=== PATIENT | female | born 1940 | race Caucasian/White ===

== ENCOUNTER 2022-01-21 16:19 | Emergency (ER) | payer MEDICARE, OTHER, SELFPAY ==
[2022-01-21] VITALS (11 sets, daily range): BP systolic 122–217; BP diastolic 58–132; PULSE 99–127; RESP 16–32; TEMP 36.9–37.3; O2SAT 92–100; BMI 38.0
--- NOTE | 2022-01-21 16:44 | ED_ITS ---
HPI - General Adult General: Chief complaint: Nausea/Vomiting/Diarrhea Stated complaint: N,V,D Time Seen by Provider: 01/21/22 16:39 History of Present Illness: Patient is an 81-year-old female with prior history of breast cancer presenting to the emergency room from [facility] for evaluation of altered mental status and dark stool. On Wednesday, patient fell and was found on the ground. Since then, patient is becoming increasingly more confused. Over the last 2 days, care home notes the patient has been passing dark stool. Patient had more episodes of dark stool yesterday compared to today. Patient's family found patient to be more confused with dark stool decided to call EMS and patient was brought here. Patient has no history of cirrhosis, or anticoagulation use. Family denies any antiplatelet use. Onset: 3 days ago Duration:3 days Location:home Severity:moderate Review of Systems General: Reports: ROS unobtainable due to mental status Neuro: Reports: other (+increased confusion) [facility] ED PFSH: Medical History Breast cancer Fall Social History Smoking and tobacco status: never smoked Alcohol intake: never Substance/Drug Use: never Physical Exam Const: COMMON NORMALS: alert HENMT: COMMON NORMALS: atraumatic HEAD & SCALP: atraumatic MOUTH: moist mucous membranes abnormal Eye: COMMON NORMALS: EOMs intact bilaterally and conjunctivae normal CONJUNCTIVA: Yes conjunctivae normal Neck/C-Spine: COMMON NORMALS: full ROM and supple Resp: COMMON NORMALS: normal respiratory effort and clear to auscultation bilaterally AUSCULTATION: clear to auscultation bilaterally Cardio: RATE: bradycardic GI: COMMON NORMALS: Soft to palpation and non-tender PALPATION: Yes Soft to palpation OTHER: No focal TTP. NO guarding rebound, guarding, rigidity. No CVA tenderness to percussion. Neg Logan/Neg McBurney's point tenderness, no suprabupic tenderness to palpation. RECTAL: Hemoccult positive melanotic stool, L perianal fluctuance measuring 2cm Extremity: COMMON NORMALS: full ROM Neuro: SENSORIUM/ORIENTATION: Yes alert MOTOR EXAM: No Abnormal motor strength present and Other motor observations present (no focal motor deficits) OTHER: GCS 14, confused, moving all extremities, answering most questions Psych: OTHER: +unable to assess due to AMS Course Vital Signs: Vital signs: Vital Signs Temperature 98.5 F 01/21/22 20:11 Pulse Rate 99 01/21/22 21:15 Respiratory Rate 16 01/21/22 21:00 Blood Pressure 148/93 01/21/22 20:11 Pulse Oximetry 100 01/21/22 21:00 Oxygen Delivery Me thod 01/21/22 21:00 MDM - General Adult Medical Decision Making Patient is an 81-year-old female with prior history of breast cancer presenting to the emergency room from [facility] for evaluation of altered mental status and dark stool. No history of cirrhosis. Not on any anticoagulation or antiplatelets. On physical exam, patient appears to be confused. Patient had large amount of black stool in the linen. Patient initially is noted be dry and tachycardic to the 130s 140s. Blood pressure appears to be compensated. Initial WBC of 26K. Patient has a sodium 124 today. I suspect the patient has acute GI bleed. She received 2 units of uncrossed O+ blood. Patient received Protonix. No history of varices or cirrhosis. Decision was made to not give patient any octreotide. Given significant leukocytosis and altered mental status, patient received vancomycin and meropenem with IVF. CT head is negative for any acute pathology. CTA chest negative for any signs of PE. Case was discussed with Dr. Sun who agreed with the transfer to [facility] for management of acute GI bleed. Disposition: Transfer to outside hospital Lab Data : 01/21/22 18:16 01/21/22 16:29 Radiology Impressions Cervical Spine CT 01/21/22 17:07 IMPRESSION: No acute findings. Head CT 01/21/22 17:07 IMPRESSION: 1. Negative for intracranial hemorrhage or mass effect. 2. Diffuse moderate to severe ventricular dilation suggestive of chronic communicating hydrocephalus with moderate diffuse white matter disease likely reflecting chronic microvascular ischemic changes. 3. Right basal ganglia chronic lacunar infarct. Chest CTA 01/21/22 17:40 IMPRESSION: Negative CTA chest. No acute chest abnormality identified. Laboratory Results WBC 39.1 10^3/uL (4.0-10.0) H* 01/21/22 18:16 RBC 3.96 10^6/uL (4.1-5.3) L 01/21/22 18:16 Hgb 10.6 g/dL (11.5-15.3) L D 01/21/22 18:16 Hct 34.0 % (37.0-47.0) L D 01/21/22 18:16 MCV 85.9 fl (81-99) 01/21/22 18:16 MCH 26.8 pg (28.0-34.0) L 01/21/22 18:16 MCHC 31.2 g/dL (30.0-36.0) 01/21/22 18:16 RDW 12.9 % (12.1-15.1) 01/21/22 18:16 Plt Count 310 10^3/cmm (130-400) 01/21/22 18:16 MPV 9.4 fL (7.4-10.4) 01/21/22 18:16 Neut % (Auto) 88.9 % 01/21/22 18:16 Lymph % (Auto) 0.6 % 01/21/22 18:16 Dewey % (Auto) 8.6 % 01/21/22 18:16 Eos % (Auto) 0.1 % 01/21/22 18:16 Baso % (Auto) 0.3 % 01/21/22 18:16 Neut # (Auto) 34.74 10^3/uL (1.8-7.7) H 01/21/22 18:16 Lymph # (Auto) 0.3 10^3/uL (0.8-4.8) L 01/21/22 18:16 Dewey # (Auto) 3.4 10^3/uL (0.2-0.9) H 01/21/22 18:16 Eos # (Auto) 0.0 10^3/uL (0.0-0.8) 01/21/22 18:16 Baso # (Auto) 0.1 10^3/uL (0.0-0.1) 01/21/22 18:16 Nucleated RBC % (auto) 0 % 01/21/22 18:16 Nucleated RBCs # 0.0 /100WBC 01/21/22 18:16 PT 15.20 SECONDS (12.1-14.9) H 01/21/22 16:29 INR 1.16 (0.8-1.2) 01/21/22 16:29 APTT 30.3 SECONDS (23.9-36.7) 01/21/22 16:29 Sodium 124 mmol/L (136-145) L 01/21/22 16:29 Potassium 3.8 mmol/L (3.5-5.1) 01/21/22 16:29 Chloride 88 mmol/L (98-107) L 01/21/22 16:29 Carbon Dioxide 23 mmol/L (22-29) 01/21/22 16:29 Anion Gap 16.8 (5-19) 01/21/22 16:29 BUN 10 mg/dL (8-23) 01/21/22 16:29 Creatinine 0.6 mg/dL (0.5-0.9) 01/21/22 16:29 GFR Calculation Not Reportable 01/21/22 16:29 Glucose 124 mg/dL (65-115) H 01/21/22 16:29 Calculated Osmolality 258 mOsm/kg (285-295) L 01/21/22 16:29 Lactate 1.4 mmol/L (0.5-2.2) 01/21/22 18:16 Calcium 8.6 mg/dL (8.5-10.5) 01/21/22 16:29 Total Bilirubin 0.5 mg/dL (0.15-1.2) 01/21/22 16:29 AST 35 U/L (0-32) H 01/21/22 16:29 ALT 26 U/L (0-33) 01/21/22 16:29 Alkaline Phosphatase 174 U/L (35-105) H 01/21/22 16:29 Total Protein 6.4 g/dL (6.6-8.7) L 01/21/22 16:29 Albumin 3.4 g/dL (3.5-5.2) L 01/21/22 16:29 Globulin 3.0 g/dL (1.3-4.6) 01/21/22 16:29 Lipase 34 U/L (13-60) 01/21/22 16:29 Blood Type O Negative 01/21/22 17:18 Rho(D) Type Negative 01/21/22 17:18 Antibody Screen Negative 01/21/22 17:18 Crossmatch See Detail 01/21/22 17:18 Imaging Data Other Imaging: Radiologist's impression: [facility] [address] [facility] [address] CT Scan Report Signed Patient: Ciera Felder Unit #: [id number] : 1940 Age/Sex: 81 / F ADM Date: 01/21/22 Loc: ER Room/Bed: Attending Dr: Ordering Provider/Ordering MD: Shant Barker MD Date of Service: 01/21/22 Procedure(s): CT angio chest PE protcl [id number] Accession Number(s): [id number] Report Number: [id number] PROCEDURE INFORMATION: Exam: CTA Chest With Contrast Exam date and time: 01/21/2022 5:59 PM Age: 81 years old Clinical indication: Shortness of breath; Prior surgery; Surgery date: 6+ months; Surgery type: Breast cancer; Additional info: Dyspnea S/P flu shot yesterday TECHNIQUE: Imaging protocol: Computed tomographic angiography of the chest with contrast. 3D rendering (Not supervised by radiologist): MIP and/or 3D reconstructed images were created by the technologist. Radiation optimization: All CT scans at this facility use at least one of these dose optimization techniques: automated exposure control; mA and/or kV adjustment per patient size (includes targeted exams where dose is matched to clinical indication); or iterative reconstruction. Contrast material: OMNIPAQUE 350; Contrast volume: 85 ml; Contrast route: INTRAVENOUS (IV);? COMPARISON: CT angio chest PE protcl [id number] 07/16/2016 8:34 PM RADIATION DOSE METRICS: Total DLP (mGy-cm): 376.3 FINDINGS: Pulmonary arteries: Normal. No pulmonary emboli. Aorta: Unremarkable. No aortic aneurysm. No aortic dissection. Lungs: There is some hyperinflation of the lungs. No focal consolidation. No focal mass. Negative for endobronchial obstruction. Unremarkable pulmonary interstitium. Pleural spaces: Unremarkable. No pneumothorax. No pleural effusion. Heart: Unremarkable. No cardiomegaly. No pericardial effusion. Lymph nodes: Unremarkable. No enlarged lymph nodes. Bones/joints: Unremarkable. No acute fracture. Soft tissues: Right anterior chest wall mastectomy surgical changes. No complication. CT/CT angio chest PE protcl [id number] IMPRESSION: Negative CTA chest. No acute chest abnormality identified. ? Dictated By: Jeffrey Mullins Signed By: Jeffrey Mullins Signed Date/Time: 01/21/221845 DD/ [address] [address] [address] Scan Report Signed Patient: Ciera Felder Unit #: [id number] : 1940 Age/Sex: 81 / F ADM Date: 01/21/22 Loc: ER Room/Bed: Attending Dr: Ordering Provider/Ordering MD: Shant Barker MD Date of Service: 01/21/22 Procedure(s): CT head wo con* [id number] Accession Number(s): [id number] Report Number: [id number] PROCEDURE INFORMATION: Exam: CT Head Without Contrast Exam date and time: 01/21/2022 5:44 PM Age: 81 years old Clinical indication: Injury or trauma; Fall; Blunt trauma (contusions or hematomas) TECHNIQUE: Imaging protocol: Computed tomography of the head without contrast. Radiation optimization: All CT scans at this facility use at least one of these dose optimization techniques: automated exposure control; mA and/or kV adjustment per patient size (includes targeted exams where dose is matched to clinical indication); or iterative reconstruction. COMPARISON: No relevant prior studies available. RADIATION DOSE METRICS: Total DLP (mGy-cm): 1209.31 FINDINGS: Brain:? Right basal ganglia chronic lacunar infarct. Cerebral ventricles: No ventriculomegaly. Paranasal sinuses: Visualized sinuses are unremarkable. No fluid levels. Mastoid air cells: Visualized mastoid air cells are well aerated. Bones/joints: Unremarkable. No acute fracture. Soft tissues: Unremarkable. Other findings: Diffuse moderate to severe ventricular dilation suggestive of chronic communicating hydrocephalus with moderate diffuse white matter disease likely reflecting chronic microvascular ischemic changes. CT/CT head wo con* [id number] IMPRESSION: 1. Negative for intracranial hemorrhage or mass effect. 2. Diffuse moderate to severe ventricular dilation suggestive of chronic communicating hydrocephalus with moderate diffuse white matter disease likely reflecting chronic microvascular ischemic changes. 3. Right basal ganglia chronic lacunar infarct. ? Dictated By: Jesus Hilario MD Signed By: Jesus Hilario MD Signed Date/Time: 01/21/221848 DD/ [address] [address] [address] Scan Report Signed Patient: Ciera Felder Unit #: [id number] : 1940 Age/Sex: 81 / F ADM Date: 01/21/22 Loc: ER Room/Bed: Attending Dr: Ordering Provider/Ordering MD: Shant Barker MD Date of Service: 01/21/22 Procedure(s): CT cervical spin wo con* [id number] Accession Number(s): [id number] Report Number: [id number] PROCEDURE INFORMATION: Exam: CT Cervical Spine Without Contrast Exam date and time: 01/21/2022 5:50 PM Age: 81 years old Clinical indication: Injury or trauma; Fall; Blunt trauma TECHNIQUE: Imaging protocol: Computed tomography of the cervical spine without contrast. Radiation optimization: All CT scans at this facility use at least one of these dose optimization techniques: automated exposure control; mA and/or kV adjustment per patient size (includes targeted exams where dose is matched to clinical indication); or iterative reconstruction. COMPARISON: CT head wo con* [id number] 01/21/2022 5:44 PM RADIATION DOSE METRICS: Total DLP (mGy-cm): 204.17 FINDINGS: Bones/joints: No acute fracture. Normal alignment. C2-C3: No significant disc protrusion. No severe spinal canal stenosis. No significant neural foraminal narrowing. C3-C4: No significant disc protrusion. No severe spinal canal stenosis. No significant neural foraminal narrowing. C4-C5: No significant disc protrusion. No severe spinal canal stenosis. No significant neural foraminal narrowing. C5-C6: No significant disc protrusion. No severe spinal canal stenosis. No significant neural foraminal narrowing. C6-C7: No significant disc protrusion. No severe spinal canal stenosis. No significant neural foraminal narrowing. C7-T1: No significant disc protrusion. No severe spinal canal stenosis. No significant neural foraminal narrowing. Lungs: Lung apices are normal. Soft tissues: Unremarkable. CT/CT cervical spin wo con* [id number] IMPRESSION: No acute findings. ? Dictated By: Jesus Hilario MD Signed By: Jesus Hilario MD Signed Date/Time: 01/21/221851 DD/ 49 Discharge Plan Discharge Patient Disposition: Transfer to ED Clinical Impression: Acute GI bleeding Condition: Stable Prescriptions: No Action acetaminophen 500 mg Tablet 500 mg PO Q6H PRN (Reason: Pain) albuterol sulfate 90 mcg/actuation Hfa Aerosol Inhaler 2 puff INHALATION QID PRN (Reason: Shortness Of Breath) ipratropium-albuterol 0.5 mg-3 mg(2.5 mg base)/3 mL Solution For Nebulization 3 ml INHALATION TID PRN (Reason: Shortness Of Breath) albuterol sulfate 2.5 mg /3 mL (0.083 %) Solution For Nebulization 2.5 mg INHALATION QID PRN (Reason: SHORTNESS OF BREATH) hydrocodone-acetaminophen 5-325 mg Tablet 1 tab PO Q8H PRN (Reason: Pain) Plavix 75 mg Tablet 75 mg PO DAILY alprazolam 0.5 mg Tablet 0.5 mg PO BID PRN (Reason: Anxiety) Milk of Magnesia 400 mg/5 mL Suspension 30 ml PO DAILY PRN (Reason: Constipation) bisacodyl 10 mg Suppository 10 mg FL DAILY PRN (Reason: Constipation) Fleet Enema 19-7 gram/118 mL Enema 118 ml FL DAILY PRN (Reason: Constipation) sertraline 25 mg Tablet 25 mg PO BEDTIME Rx Instructions: X 14 DAYS THEN INCREASE TO 50MG AT BEDTIME budesonide 0.5 mg/2 mL Suspension For Nebulization 0.5 mg INHALATION BID montelukast 10 mg Tablet 10 mg PO DAILY bisacodyl 5 mg Tablet,Delayed Release (Dr/Ec) 10 mg PO DAILY PRN (Reason: Constipation) fluticasone propionate 50 mcg/actuation [place],Suspension 2 spray INTRANASAL DAILY Rx Instructions: administer into each nostril Refresh Liquigel 1 % Drops, Liquid Gel 1 drp OPHTHALMIC (EYE) BID naloxone 0.4 mg/mL Syringe 0.4 mg IM Q2M PRN (Reason: OVERDOSE) Rx Instructions: NTExceed 10 mg total dose/episode Bevespi Aerosphere 9-4.8 mcg Hfa Aerosol Inhaler 2 puff INHALATION BID Referrals: Salty Tyler DO [Primary Care Provider] - Coding Level of Care Code ED Clod Puller for Chg Fwd Exam Comprehensive
[2022-01-21 16:52] LABS: Basophils # 0.1 10^3/uL (0.0-0.1); Basophils % 0.2 %; Eosinophils % 0.1 %; Hematocrit 25.1 % (37.0-47.0); Lymphocytes # 0.9 10^3/uL (0.8-4.8); Lymphocytes % 3.2 %; Mean Corpuscular HGB Conc 31.9 g/dL (30.0-36.0); Mean Corpuscular Hemoglobin 27.3 pg (28.0-34.0); Mean Corpuscular Volume 85.7 fl (81-99); Mean Platelet Volume 9.6 fL (7.4-10.4); Monocytes # 2.1 10^3/uL (0.2-0.9); Monocytes % 7.8 %; Neutrophils # 23.44 10^3/uL (1.8-7.7); Nucleated Red Blood Cells % 0 %; Platelet Count 249 10^3/cmm (130-400); Red Blood Count 2.93 10^6/uL (4.1-5.3); Red Cell Distribution Width 13.1 % (12.1-15.1); White Blood Count 26.6 10^3/uL (4.0-10.0)
--- NOTE | 2022-01-21 17:07 | CTR_ITS ---
PROCEDURE INFORMATION: Exam: CT Head Without Contrast Exam date and time: 01/21/2022 5:44 PM Age: 81 years old Clinical indication: Injury or trauma; Fall; Blunt trauma (contusions or hematomas) TECHNIQUE: Imaging protocol: Computed tomography of the head without contrast. Radiation optimization: All CT scans at this facility use at least one of these dose optimization techniques: automated exposure control; mA and/or kV adjustment per patient size (includes targeted exams where dose is matched to clinical indication); or iterative reconstruction. COMPARISON: No relevant prior studies available. RADIATION DOSE METRICS: Total DLP (mGy-cm): 1209.31 FINDINGS: Brain: Right basal ganglia chronic lacunar infarct. Cerebral ventricles: No ventriculomegaly. Paranasal sinuses: Visualized sinuses are unremarkable. No fluid levels. Mastoid air cells: Visualized mastoid air cells are well aerated. Bones/joints: Unremarkable. No acute fracture. Soft tissues: Unremarkable. Other findings: Diffuse moderate to severe ventricular dilation suggestive of chronic communicating hydrocephalus with moderate diffuse white matter disease likely reflecting chronic microvascular ischemic changes. CT/CT head wo con* [id number] IMPRESSION: 1. Negative for intracranial hemorrhage or mass effect. 2. Diffuse moderate to severe ventricular dilation suggestive of chronic communicating hydrocephalus with moderate diffuse white matter disease likely reflecting chronic microvascular ischemic changes. 3. Right basal ganglia chronic lacunar infarct.
--- NOTE | 2022-01-21 17:07 | CTR_ITS ---
PROCEDURE INFORMATION: Exam: CT Cervical Spine Without Contrast Exam date and time: 01/21/2022 5:50 PM Age: 81 years old Clinical indication: Injury or trauma; Fall; Blunt trauma TECHNIQUE: Imaging protocol: Computed tomography of the cervical spine without contrast. Radiation optimization: All CT scans at this facility use at least one of these dose optimization techniques: automated exposure control; mA and/or kV adjustment per patient size (includes targeted exams where dose is matched to clinical indication); or iterative reconstruction. COMPARISON: CT head wo con* [id number] 01/21/2022 5:44 PM RADIATION DOSE METRICS: Total DLP (mGy-cm): 204.17 FINDINGS: Bones/joints: No acute fracture. Normal alignment. C2-C3: No significant disc protrusion. No severe spinal canal stenosis. No significant neural foraminal narrowing. C3-C4: No significant disc protrusion. No severe spinal canal stenosis. No significant neural foraminal narrowing. C4-C5: No significant disc protrusion. No severe spinal canal stenosis. No significant neural foraminal narrowing. C5-C6: No significant disc protrusion. No severe spinal canal stenosis. No significant neural foraminal narrowing. C6-C7: No significant disc protrusion. No severe spinal canal stenosis. No significant neural foraminal narrowing. C7-T1: No significant disc protrusion. No severe spinal canal stenosis. No significant neural foraminal narrowing. Lungs: Lung apices are normal. Soft tissues: Unremarkable. CT/CT cervical spin wo con* [id number] IMPRESSION: No acute findings.
[2022-01-21 17:12] LABS: Alanine Aminotransferase 26 U/L (0-33); Albumin Level 3.4 g/dL (3.5-5.2); Alkaline Phosphatase 174 U/L (35-105); Aspartate Amino Transferase 35 U/L (0-32); Blood Urea Nitrogen 10 mg/dL (8-23); Calcium 8.6 mg/dL (8.5-10.5); Carbon Dioxide 23 mmol/L (22-29); Chloride 88 mmol/L (98-107); Glucose 124 mg/dL (65-115); Lipase 34 U/L (13-60); Osmolality Calculated 258 mOsm/kg (285-295); Sodium 124 mmol/L (136-145); Total Bilirubin 0.5 mg/dL (0.15-1.2); Total Protein 6.4 g/dL (6.6-8.7)
[2022-01-21 17:13] LABS: Anion Gap 16.8 (5-19); Potassium 3.8 mmol/L (3.5-5.1)
[2022-01-21 17:15] LABS: INR 1.16 (0.8-1.2)
[2022-01-21 17:16] LABS: Partial Thromboplastin Time 30.3 SECONDS (23.9-36.7)
--- NOTE | 2022-01-21 17:40 | CTR_ITS ---
PROCEDURE INFORMATION: Exam: CTA Chest With Contrast Exam date and time: 01/21/2022 5:59 PM Age: 81 years old Clinical indication: Shortness of breath; Prior surgery; Surgery date: 6+ months; Surgery type: Breast cancer; Additional info: Dyspnea S/P flu shot yesterday TECHNIQUE: Imaging protocol: Computed tomographic angiography of the chest with contrast. 3D rendering (Not supervised by radiologist): MIP and/or 3D reconstructed images were created by the technologist. Radiation optimization: All CT scans at this facility use at least one of these dose optimization techniques: automated exposure control; mA and/or kV adjustment per patient size (includes targeted exams where dose is matched to clinical indication); or iterative reconstruction. Contrast material: OMNIPAQUE 350; Contrast volume: 85 ml; Contrast route: INTRAVENOUS (IV); COMPARISON: CT angio chest PE protcl [id number] 07/16/2016 8:34 PM RADIATION DOSE METRICS: Total DLP (mGy-cm): 376.3 FINDINGS: Pulmonary arteries: Normal. No pulmonary emboli. Aorta: Unremarkable. No aortic aneurysm. No aortic dissection. Lungs: There is some hyperinflation of the lungs. No focal consolidation. No focal mass. Negative for endobronchial obstruction. Unremarkable pulmonary interstitium. Pleural spaces: Unremarkable. No pneumothorax. No pleural effusion. Heart: Unremarkable. No cardiomegaly. No pericardial effusion. Lymph nodes: Unremarkable. No enlarged lymph nodes. Bones/joints: Unremarkable. No acute fracture. Soft tissues: Right anterior chest wall mastectomy surgical changes. No complication. CT/CT angio chest PE protcl [id number] IMPRESSION: Negative CTA chest. No acute chest abnormality identified.
[2022-01-21 18:30] LABS: Basophils # 0.1 10^3/uL (0.0-0.1); Basophils % 0.3 %; Eosinophils % 0.1 %; Hemoglobin 10.6 g/dL (11.5-15.3); Lymphocytes # 0.3 10^3/uL (0.8-4.8); Lymphocytes % 0.6 %; Mean Corpuscular HGB Conc 31.2 g/dL (30.0-36.0); Mean Corpuscular Hemoglobin 26.8 pg (28.0-34.0); Mean Corpuscular Volume 85.9 fl (81-99); Mean Platelet Volume 9.4 fL (7.4-10.4); Monocytes # 3.4 10^3/uL (0.2-0.9); Monocytes % 8.6 %; Neutrophils # 34.74 10^3/uL (1.8-7.7); Neutrophils % 88.9 %; Nucleated Red Blood Cells % 0 %; Platelet Count 310 10^3/cmm (130-400); Red Blood Count 3.96 10^6/uL (4.1-5.3); Red Cell Distribution Width 12.9 % (12.1-15.1)
[2022-01-21 18:32] LABS: White Blood Count 39.1 10^3/uL (4.0-10.0)
[2022-01-21 18:42] LABS: Lactate (Lactic Acid level) 1.4 mmol/L (0.5-2.2)
[2022-01-21] MEDS: metroNIDAZOLE IV 500 MG/100 ML PREMIX 100 MG IV (18:49)
[2022-01-21] MEDS: pantoprazole 40 mg SDV 80 MG IVP (18:52)
--- NOTE | 2022-01-21 18:59 | PC.NURSE ---
blood was started at 1846, temp 99.1 blood pressure 156/108 pulse 123
[2022-01-21] MEDS: meropenem 1,000 MG in sodium chloride 0.9% (plus) 50 ML 100 MG IV (19:58)
--- NOTE | 2022-01-21 20:11 | PC.NURSE ---
RN x 2 at bedside to verify 2nd unit of blood. This RN and Verito Ta RN verified pt name, , unit number ([id number]), no blood clots, no leaks, no discoloration, O+ RBC, unit expiration date.
--- NOTE | 2022-01-21 20:12 | PC.NURSE ---
2nd unit of uncrossed blood started at this time. Verified by 2nd nurse.
--- NOTE | 2022-01-21 20:42 | CTR_ITS ---
PROCEDURE INFORMATION: Exam: CT Abdomen And Pelvis With Contrast Exam date and time: 01/21/2022 9:51 PM Age: 81 years old Clinical indication: Abnormal findings; Abnormal lab test; Elevated wbc; Nausea and vomiting; Prior surgery; Surgery type: Gb; Patient HX: N/v/d. Bloody stools. Wbc of 40k. Decreased hemoglobin. ; Additional info: Significant leukocytosis TECHNIQUE: Imaging protocol: Computed tomography of the abdomen and pelvis with contrast. Radiation optimization: All CT scans at this facility use at least one of these dose optimization techniques: automated exposure control; mA and/or kV adjustment per patient size (includes targeted exams where dose is matched to clinical indication); or iterative reconstruction. Contrast material: OMNI 350; Contrast volume: 80 ml; Contrast route: INTRAVENOUS (IV); COMPARISON: CT angio chest PE protcl [id number] 01/21/2022 5:59 PM RADIATION DOSE METRICS: Total DLP (mGy-cm): 807.77 FINDINGS: Lungs: Bibasilar atelectasis. Liver: Normal. No mass. Gallbladder and bile ducts: Cholecystectomy. Pancreas: Normal. No ductal dilation. Spleen: Normal. No splenomegaly. Adrenal glands: Normal. No mass. Kidneys and ureters: Normal. No hydronephrosis. Stomach and bowel: Prominent fluid in the stomach and small bowel may reflect a gastroenteritis. Appendix: No evidence of appendicitis. Intraperitoneal space: Unremarkable. No free air. No significant fluid collection. Vasculature: Unremarkable. No abdominal aortic aneurysm. Lymph nodes: Unremarkable. No enlarged lymph nodes. Urinary bladder: Unremarkable as visualized. Reproductive: Unremarkable as visualized. Bones/joints: Unremarkable. No acute fracture. Soft tissues: Right buttocks subcutaneous edema, nonspecific. CT/CT abdomen pelvis w con* [id number] IMPRESSION: 1. Prominent fluid in the stomach and small bowel may reflect a gastroenteritis. 2. Bibasilar atelectasis. 3. Cholecystectomy. 4. Right buttocks subcutaneous edema, nonspecific.
[2022-01-21] MEDS: vancomycin 1,000 MG in sodium chloride 0.9% 250 ML 250 MG IV (20:54)
[2022-01-21] MEDS: sodium chloride 0.9% 250 ML IV (20:55)
[2022-01-21] MEDS: ipratropium-albuterol 3 mL Neb INHALATION ×3 (21:08→21:09)
[2022-01-21] MEDS: iohexol 350 mg/mL 100 mL Btl IV (21:53)
== END 2022-01-21 23:10 ==
PROVIDERS: Emergency Provider Emergency Medicine; PCP Internal Medicine
DX: K92.2 Gastrointestinal hemorrhage, unspecified (principal); Z79.02 Long term (current) use of antithrombotics/antiplatelets; Z85.3 Personal history of malignant neoplasm of breast
CPT/HCPCS: 36415; 36430; 70450; 71275; 72125; 74177; 80053; 83605; 83690; 85025; 85610; 85730; 86850; 86900; 86920; 87040; 94640; 96374; 96375; 99285; C9113; J2185; J3370; J7050; P9016; Q9967; S0030